=== PATIENT | male | born 1955 | race Caucasian/White ===

== ENCOUNTER 2016-10-31 05:24 | Observation (INO) | payer OTHER ==
[~2016-10-31] VITALS: Ht 180.3 cm; Wt 99.3 kg
[~2016-10-31 05:24] MED LIST: ALEVE220 M2 PO; ALLEGRA60 MG PO; BENICAR HCT 201 EACH PO; FLUTICASONE PRO16 GM BOTH NARES; INDOCIN50 MG PO; METAMUCIL POWD798 GM PO; PERCOCET 5/31 TABLET PO; PRAVASTATIN SOD40 MG PO; PRILOSEC20 MG PO; VIAGRA100 MG PO; [UNRECOGNIZED DRUG - OTHER] PO
[2016-10-31 05:59] LABS: HEMATOCRIT 41.9 % (38.0-50.0); MCH 31.8 PG (29.0-34.0); MCHC 32.9 G/DL (30.0-36.0); MCV 96.5 FL (86-99); MEAN PLAT.VOLUME 9.2 uM^3 (9.0-12.4); PLATELET COUNT 339 K/uL (156-360); RBC DIS.WIDTH-CV 12.2 % (11.8-14.6); RBC DIS.WIDTH-SD 44.2 % (39-53); RED BLOOD COUNT 4.34 M/uL (4.00-5.50); WHITE BLOOD COUNT 6.4 K/uL (4.1-10.2)
[2016-10-31 06:08] LABS: CHLORIDE 103 mEq/L (99-109); SODIUM 137 mEq/L (136-147)
[2016-10-31 06:09] LABS: GLUCOSE 99 mg/dL (70-99)
[2016-10-31 06:11] LABS: ANION GAP 12 MEQ/L (2-14)
[2016-10-31 06:13] LABS: GFR ESTIMATE (CALCULATED) 55 mL/min/
[2016-10-31 06:14] LABS: UREA NITROGEN (BUN) 29 mg/dL (9-23)
[2016-10-31 06:23] LABS: TROP-I INTERPRETATION NEGATIVE; TROPONIN-I < 0.01 ng/mL (0.0-0.30)
[2016-10-31 06:35] LABS: CREATINE KINASE 189 IU/L (1-294)
[2016-10-31 06:43] LABS: PROTHROMBIN TIME 10.6 (9.2-11.2); PTT 29.2 (25-32)
[2016-10-31 07:52] LABS: HDL CHOLESTEROL 31 MG/DL (Desirable>=40); LDL CHOLESTEROL 110 mg/dL (Desirable<100); NON-HDL CHOLESTEROL 120 mg/dL (Desirable<160); TOTAL CHOLESTEROL 151 mg/dL (Desirable<200); TRIGLYCERIDES 48 MG/DL (Normal: <150)
[2016-10-31] MEDS ORDERED: OMEPRAZOLE40 M1 PO (08:49)
[2016-10-31] MEDS ORDERED: CIALIS5 MG PO (08:50)
[2016-10-31] MEDS ORDERED: VITAMIN E1000 UNI1 PO (08:51)
[2016-10-31] MEDS ORDERED: ALLOPURINOL100 MG PO (08:51)
[2016-10-31] MEDS ORDERED: ROSUVASTATIN CAL5 MG PO (08:51)
[2016-10-31] MEDS ORDERED: VITAMIN D31000 UNIT PO (08:52)
[2016-10-31] MEDS ORDERED: PERCOCET 5/31 TABLET PO (08:53)
[2016-10-31 10:05] LABS: TROP-I INTERPRETATION NEGATIVE; TROPONIN-I < 0.01 ng/mL (0.0-0.30)
[2016-10-31 19:20] VITALS: BP 138/76
[2016-10-31 20:18] LABS: TROP-I INTERPRETATION NEGATIVE; TROPONIN-I < 0.01 ng/mL (0.0-0.30)
[2016-10-31 23:32] VITALS: BP 131/69
[2016-11-01 04:40] VITALS: BP 147/77
[2016-11-01 07:17] LABS: ANION GAP 8 MEQ/L (2-14); CHLORIDE 109 MEQ/L (99-109); GFR ESTIMATE (CALCULATED) > 59 mL/min/; GLUCOSE 95 mg/dL (70-99); POTASSIUM 4.3 MEQ/L (3.7-5.4); SAMPLE HEMOLYSIS CHECK 0; SAMPLE ICTERIC CHECK 0; SAMPLE LIPEMIA CHECK 0; SODIUM 141 MEQ/L (136-147); UREA NITROGEN (BUN) 16 mg/dL (9-23)
[2016-11-01 09:00] VITALS: BP 131/77
[2016-11-01] MEDS ORDERED: OMEPRAZOLE40 M1 PO (09:33)
== END 2016-11-01 10:40 | disposition home or self-care (01) ==
LOC: EME 05:24 → EDOF 07:05 → 4EAST 07:05 → EDOF 07:05 → 4EAST 19:31
PROVIDERS: Emergency Medicine; Internal Medicine
DX: R07.89 Other chest pain (principal); K21.9 Gastro-esophageal reflux disease without esophagitis; I25.10 Atherosclerotic heart disease of native coronary artery without angina pectoris; N17.9 Acute kidney failure, unspecified; I11.9 Hypertensive heart disease without heart failure; E78.5 Hyperlipidemia, unspecified; E66.9 Obesity, unspecified; Z68.30 Body mass index [BMI] 30.0-30.9, adult; G47.30 Sleep apnea, unspecified
CPT/HCPCS: 71020; 78582; 80048; 80061; 82550; 84484; 85027; 85379; 85610; 85730; 93005; A9540; A9567; C1769; C1887; G0378; J1644; J2250; J3010; J7030; J7040